=== PATIENT | male | born 1970 ===

== ENCOUNTER 2017-02-18 19:46 | Emergency (ER) | payer SELFPAY ==
[2017-02-18 20:00] VITALS: BP 120/73; PULSE 87; RESP 20; TEMP 98.2; O2SAT 95
== END 2017-02-18 20:03 | disposition left against medical advice (07) ==
LOC: C.ER 19:46
DX: F19.10 Other psychoactive substance abuse, uncomplicated (principal); Z02.9 Encounter for administrative examinations, unspecified
CPT/HCPCS: 82948; LWBS0

== ENCOUNTER 2017-11-28 12:54 | Emergency (ER) | payer OTHER ==
[2017-11-28 13:10] VITALS: BP 128/79; PULSE 89; RESP 20; TEMP 99.4; O2SAT 99
[2017-11-28] MEDS ORDERED: Lidocaine 5% Patch TD STA (13:30)
--- NOTE | 2017-11-28 13:30 | C.PDOC ---
History Of Present Illness 47 year old male presents to the ED for evaluation of persistent to left side of chest and back s/p fall and contusion 5 days ago. Patient states pain is worse with movement and when coughing. Patient reports limited improvement with Ibuprofen. Patient was advised by employment office to come in for evaluation and work note. Patient denies fever, chills, shortness of breath, dyspnea on exertion. Patient denies other associated symptoms or injuries. CO PERSIST PERSIST PAIN L SIDE CHEST/BACK SP FALL AND CONTUSION 5 DAYS AGO. PAIN WORSE W MOVEMENT, COUGH. LIMITED IMPROVE W IBUPROFEN. PT ADVISED BY EMPLOYMENT OFFICE TO COME FOR EVAL, WORK NOTE. NO FEVER, SOB/ROBLERO. DENIES OTHER ASSOC SX INJURY EXAM MILD DIST NONTOXIC HEENT ATRAUM CHEST WALL + L LAT LOWER RIB TEND NO CREPITUS, SWELL GROSS DEFORM. SKIN OCC ABRASIONS L MID BACK NO ERYTHEMA NEURO INTACT NARD SPEAKING FULL SENTENCES REMAINDER NEG - HPI Time Seen by Provider: 11/28/17 13:18 Chief Complaint (Nursing): Back Pain History Per: Patient History/Exam Limitations: no limitations Onset/Duration Of Symptoms: Days (5) Location Of Injury: Left: Chest Additional History Per: Patient Past Medical History Reviewed: Historical Data, Nursing Documentation, Vital Signs Vital Signs: Last Vital Signs Temp 99.4 F 11/28/17 13:08 Pulse 89 11/28/17 13:08 Resp 20 11/28/17 13:08 BP 128/79 11/28/17 13:08 Pulse Ox 99 11/28/17 14:01 - Medical History PMH: No Chronic Diseases Surgical History: No Surg Hx Family History: States: Unknown Family Hx - Social History Hx Alcohol Use: Yes Hx Substance Use: No - Immunization History Hx Tetanus Toxoid Vaccination: No Hx Influenza Vaccination: No Hx Pneumococcal Vaccination: No Review Of Systems Constitutional: Negative for: Fever, Chills Cardiovascular: Positive for: Chest Pain (left-sided) Respiratory: Negative for: Shortness of Breath, SOB with Excertion Physical Exam - Physical Exam Appears: Non-toxic, Other (mild distress) Skin: Normal Color, Warm, Dry, Other (occasional abrasiosn to left mid-back. no erythema ) Head: Atraumatic, Normacephalic Eye(s): bilateral: Normal Inspection Oral Mucosa: Moist Neck: Supple Chest: Symmetrical, No Deformity, Tenderness (to left lateral lower rib ), No Other (crepitus, swelling or gross deformities ) Cardiovascular: Rhythm Regular, No Murmur Respiratory: Normal Breath Sounds, No Rales, No Rhonchi, No Wheezing, Other (no acute respiratory distress. speaking in full sentences ) Extremity: Normal ROM, Capillary Refill (less than 2 seconds ) Neurological/Psych: Oriented x3, Normal Speech, Normal Cognition, Other ED Course And Treatment O2 Sat by Pulse Oximetry: 99 (on RA) Pulse Ox Interpretation: Normal - Radiology CXR: Interpreted by Me CXR Interpretation: Yes: No Acute Disease - Other Rad L RIBS X-Ray: Interpreted by Me ( NEG) Progress Note: Left ribs and Chest XR ordered and reviewed. Flexeril PO, Tylenol PO, and Lidoderm TD given. Disposition Counseled Patient/Family Regarding: Studies Performed, Diagnosis, Need For Followup, Rx Given - Disposition Referrals: [facility] [Outside] [facility] [Outside] Disposition: HOME/ ROUTINE Disposition Time: 13:59 Condition: IMPROVED Prescriptions: Cyclobenzaprine [Flexeril] 10 mg PO TID #15 tab Ibuprofen [Motrin] 600 mg PO Q6 #30 tab Lidocaine 5% [Lidoderm] 1 ea TD PRN PRN #10 patch PRN Reason: Pain, Moderate (4-7) Instructions: Bruised Rib (DC) Forms: [facility] (Malian), Work Excuse - Clinical Impression Clinical Impression: Rib contusion - Scribe Statement The provider has reviewed the documentation as recorded by the Scribe (Evonne Martinez) Provider Attestation: All medical record entries made by the Scribe were at my direction and personally dictated by me. I have reviewed the chart and agree that the record accurately reflects my personal performance of the history, physical exam, medical decision making, and the department course for this patient. I have also personally directed, reviewed, and agree with the discharge instructions and disposition.
[2017-11-28] MEDS ORDERED: Lidocaine 5% Patch TD ONE (13:52)
--- NOTE | 2017-11-28 14:21 | RAD ---
PROCEDURE: Radiographs of the Chest and Left Ribs. HISTORY: TRAUMA COMPARISON: None available. TECHNIQUE: Frontal radiograph of the chest and multiple oblique radiographs of the left ribs were obtained. FINDINGS: LEFT RIBS: No fracture or focal lesion visualized. LUNGS: Clear. PLEURA: No pneumothorax or pleural fluid. CARDIOVASCULAR: Normal sized heart. No pulmonary vascular congestion. OTHER FINDINGS: None. IMPRESSION: Unremarkable radiographs of the chest and left ribs. No left rib fracture.
== END 2017-11-28 14:08 | disposition home or self-care (01) ==
LOC: C.ER 12:54
DX: S20.212A Contusion of left front wall of thorax, initial encounter (principal); W19.XXXA Unspecified fall, initial encounter

== ENCOUNTER 2017-12-11 14:37 | Emergency (ER) | payer SELFPAY ==
[2017-12-11 14:48] VITALS: BP 113/74; PULSE 73; RESP 18; TEMP 99.2; O2SAT 99
--- NOTE | 2017-12-11 14:54 | C.PDOC ---
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 Patient seen on 08/28 for left rib contusion and had xray negative for fracture. Patient denies new injury or any other complaints at this time. Time Seen by Provider: 12/11/17 14:49 Chief Complaint (Nursing): Medical Clearance History Per: Patient History/Exam Limitations: no limitations Onset/Duration Of Symptoms: Days Current Symptoms Are (Timing): Better Past Medical History Reviewed: Historical Data, Nursing Documentation, Vital Signs Vital Signs: Last Vital Signs Temp 99.2 F 12/11/17 14:47 Pulse 73 12/11/17 14:47 Resp 18 12/11/17 14:47 BP 113/74 12/11/17 14:47 Pulse Ox 99 12/11/17 15:45 - Medical History PMH: No Chronic Diseases Surgical History: No Surg Hx Family History: States: No Known Family Hx - Social History Hx Alcohol Use: Yes Hx Substance Use: No - Immunization History Hx Tetanus Toxoid Vaccination: No Hx Influenza Vaccination: No Hx Pneumococcal Vaccination: No Review Of Systems Constitutional: Negative for: Fever, Chills Cardiovascular: Negative for: Chest Pain Respiratory: Negative for: Cough Gastrointestinal: Negative for: Nausea, Vomiting Skin: Negative for: Rash Physical Exam - Physical Exam Appears: Non-toxic, No Acute Distress Skin: Warm, Dry, No Rash Head: Atraumatic, Normacephalic Eye(s): bilateral: Normal Inspection Oral Mucosa: Moist Chest: Symmetrical Cardiovascular: Rhythm Regular Respiratory: Normal Breath Sounds, No Rales, No Rhonchi, No Wheezing Gastrointestinal/Abdominal: Soft, No Tenderness, No Guarding, No Rebound Back: No CVA Tenderness, No Paraspinal Tenderness Neurological/Psych: Oriented x3, Normal Speech, Normal Cognition ED Course And Treatment O2 Sat by Pulse Oximetry: 99 (RA) Pulse Ox Interpretation: Normal Medical Decision Making Medical Decision Making: seen 11/[address] (not work related) and wants note now clearing him for 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 Disposition Doctor Will See Patient In The: Office Counseled Patient/Family Regarding: Studies Performed, Diagnosis - Disposition Referrals: [facility] [Outside] [facility] [Outside] [facility] [Outside] Disposition: HOME/ ROUTINE Disposition Time: 14:54 Condition: GOOD Instructions: Costochondritis (DC) Forms: [facility] (Andorran), Work Excuse - Clinical Impression Clinical Impression: Medical assessment - Scribe Statement The provider has reviewed the documentation as recorded by the Scribguillermo Santiago All medical record entries made by the Zachibguillermo were at my direction and personally dictated by me. I have reviewed the chart and agree that the record accurately reflects my personal performance of the history, physical exam, medical decision making, and the department course for this patient. I have also personally directed, reviewed, and agree with the discharge instructions and disposition.
== END 2017-12-11 15:04 | disposition home or self-care (01) ==
LOC: C.ER 14:37
DX: Z04.8 Encounter for examination and observation for other specified reasons (principal)

== ENCOUNTER 2018-04-15 18:31 | Emergency (ER) | payer SELFPAY ==
--- NOTE | 2018-04-15 19:12 | C.PDOC ---
History Of Present Illness 47 year old male is brought to the ED by EMS for public intoxication. As per EMS patient was found drinking on a bench. Patient admits to drinking alcohol today. Patient denies SI/H, hallucinations, trauma, injury, fall, CP, SOB. Time Seen by Provider: 04/15/18 19:12 Chief Complaint (Nursing): Substance Abuse History Per: Patient, EMS History/Exam Limitations: intoxication Onset/Duration Of Symptoms: Hrs Current Symptoms Are (Timing): Still Present Suicide/Self Injury Attempted (Context): None Modifying Factor(s): Alcohol Associated Symptoms: denies: Depression, Suicidal Thoughts, Suicidal Plan Recent travel outside of the [place]: No Additional History Per: Patient, EMS Past Medical History Reviewed: Historical Data, Nursing Documentation, Vital Signs Vital Signs: Last Vital Signs Temp 98.1 F 04/15/18 18:36 Pulse 86 04/15/18 18:36 Resp 18 04/15/18 18:36 BP 122/79 04/15/18 18:36 Pulse Ox 100 04/15/18 18:36 - Medical History PMH: No Chronic Diseases Surgical History: No Surg Hx Family History: States: No Known Family Hx - Social History Hx Alcohol Use: Yes Hx Substance Use: No - Immunization History Hx Tetanus Toxoid Vaccination: No Hx Influenza Vaccination: No Hx Pneumococcal Vaccination: No Review Of Systems Constitutional: Negative for: Fever, Chills Cardiovascular: Negative for: Chest Pain Respiratory: Negative for: Shortness of Breath Gastrointestinal: Negative for: Nausea, Vomiting Neurological: Negative for: Weakness, Numbness Psych: Negative for: Depression, Suicidal ideation Physical Exam - Physical Exam Appears: Non-toxic, No Acute Distress Skin: Warm, Dry Head: Normacephalic Eye(s): bilateral: Normal Inspection Neck: Supple Chest: Symmetrical Cardiovascular: Rhythm Regular Respiratory: No Rales, No Rhonchi, No Wheezing Gastrointestinal/Abdominal: Soft, No Tenderness, No Guarding, No Rebound Extremity: Bilateral: Atraumatic, Normal Color And Temperature, Normal ROM Neurological/Psych: Oriented x3, Normal Speech Gait: Steady ED Course And Treatment O2 Sat by Pulse Oximetry: 100 (ON RA) Pulse Ox Interpretation: Normal Reevaluation Time: 05:05 Reassessment Condition: Improved Disposition Counseled Patient/Family Regarding: Studies Performed, Diagnosis, Need For Followup - Disposition Referrals: [facility] [Outside] Disposition: HOME/ ROUTINE Disposition Time: 19:12 Condition: FAIR Instructions: Alcohol Abuse and Alcoholism (DC) Forms: [facility] (Bahamian) - Clinical Impression Clinical Impression: Alcohol intoxication - Scribe Statement The provider has reviewed the documentation as recorded by the Scribe London Dong All medical record entries made by the Scribe were at my direction and personally dictated by me. I have reviewed the chart and agree that the record accurately reflects my personal performance of the history, physical exam, medical decision making, and the department course for this patient. I have also personally directed, reviewed, and agree with the discharge instructions and disposition.
[2018-04-16 02:21] VITALS: TEMP 98.3
[2018-04-16 05:06] VITALS: O2SAT 100
[2018-04-16 05:16] VITALS: BP 124/83; PULSE 88; RESP 20
== END 2018-04-16 05:15 | disposition home or self-care (01) ==
LOC: C.ER 18:31
DX: F10.129 Alcohol abuse with intoxication, unspecified (principal)

== ENCOUNTER 2018-07-26 16:49 | Emergency (ER) | payer OTHER ==
[2018-07-26 16:57] VITALS: TEMP 98.5
--- NOTE | 2018-07-26 17:50 | C.PDOC ---
History Of Present Illness 47 y/o male presents to the ER for evaluation of head injury which occurred 4 days ago.Patient states that he was intoxicated and he fell onto the right sdief of his head and face. Patient reports that he had brief LOC. He notes that he has sharp intermittent pain on the right head. He was evalauted at [facility] and he was referred to the ER. Denies having blurriness, neck pain, nausea, and vomiting. - HPI Time Seen by Provider: 07/26/18 17:19 Chief Complaint (Nursing): Trauma History Per: Patient History/Exam Limitations: no limitations Onset/Duration Of Symptoms: Days Severity: Moderate Past Medical History Reviewed: Historical Data, Nursing Documentation, Vital Signs Vital Signs: Last Vital Signs Temp 98.5 F 07/26/18 16:55 Pulse 84 07/26/18 16:55 Resp 20 07/26/18 16:55 BP 155/94 H 07/26/18 16:55 Pulse Ox 100 07/26/18 16:55 - Medical History PMH: No Chronic Diseases Denies: Chronic Kidney Disease Surgical History: No Surg Hx Family History: States: No Known Family Hx - Social History Hx Alcohol Use: Yes Hx Substance Use: No - Immunization History Hx Tetanus Toxoid Vaccination: No Hx Influenza Vaccination: No Hx Pneumococcal Vaccination: No Review Of Systems Constitutional: Negative for: Fever, Chills Eyes: Negative for: Vision Change Gastrointestinal: Negative for: Nausea, Vomiting Neurological: Positive for: Headache. Negative for: Dizziness Physical Exam - Physical Exam Appears: Non-toxic, No Acute Distress Skin: Normal Color, Warm, Dry Head: Normacephalic, Abrasion (healing abrasions to right forehead) Eye(s): bilateral: Normal Inspection, PERRL, EOMI Nose: Normal Oral Mucosa: Moist Neck: Supple Chest: Symmetrical Cardiovascular: Rhythm Regular Respiratory: Normal Breath Sounds, No Rales, No Rhonchi, No Wheezing Gastrointestinal/Abdominal: Normal Exam, Soft, No Tenderness, No Guarding, No Rebound Back: No Vertebral Tenderness Extremity: Normal ROM Neurological/Psych: Oriented x3, Normal Speech, Normal Cranial Nerves, Normal Motor, Normal Sensation ED Course And Treatment O2 Sat by Pulse Oximetry: 100 (RA) Pulse Ox Interpretation: Normal Medical Decision Making Medical Decision Making: CT-Head has been ordered given patient's history of ETOH abuse. [address] neg for ich. d/c home Disposition Counseled Patient/Family Regarding: Studies Performed, Diagnosis, Need For Followup - Disposition Referrals: [facility] [Outside] Disposition: HOME/ ROUTINE Disposition Time: 18:13 Condition: GOOD Additional Instructions: Follow up in medical clinic in a few days, make appointment. Take Tylenol of needed for pain. Apply cold compresses to face to help reduce swelling (over a towel)several times a day. 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 - Scribe Statement The provider has reviewed the documentation as recorded by the Scribe Berlin Lee Provider Attestation All medical record entries made by the Scribe were at my direction and personally dictated by me. I have reviewed the chart and agree that the record accurately reflects my personal performance of the history, physical exam, medical decision making, and the department course for this patient. I have also personally directed, reviewed, and agree with the discharge instructions and disposition.
--- NOTE | 2018-07-26 18:10 | CT ---
Date of service: 07/26/2018 PROCEDURE: CT HEAD WITHOUT CONTRAST. HISTORY: fall with loc on sun, headache right side COMPARISON: None available. TECHNIQUE: Axial computed tomography images were obtained through the head/brain without intravenous contrast. Radiation dose: Total exam DLP = 1036.44 mGy-cm. This CT exam was performed using one or more of the following dose reduction techniques: Automated exposure control, adjustment of the mA and/or kV according to patient size, and/or use of iterative reconstruction technique. FINDINGS: HEMORRHAGE: No intracranial hemorrhage. BRAIN: No mass effect or edema. Conrad-white matter differentiation appears intact. Please note that MRI with diffusion imaging is more sensitive in the detection of acute ischemic event. VENTRICLES: No hydrocephalus. CALVARIUM: Unremarkable. PARANASAL SINUSES: Unremarkable as visualized. No significant inflammatory changes. MASTOID AIR CELLS: Unremarkable as visualized. No inflammatory changes. OTHER FINDINGS: Partial opacification of the external auditory canals, likely cerumen. Right frontal/facial soft tissue swelling. IMPRESSION: Right frontal/facial soft tissue swelling. No acute intracranial pathology identified.
[2018-07-26 18:22] VITALS: BP 143/90; PULSE 82; RESP 18; O2SAT 96
== END 2018-07-26 18:22 | disposition home or self-care (01) ==
LOC: C.ER 16:49
DX: S09.90XD Unspecified injury of head, subsequent encounter (principal); W18.30XD Fall on same level, unspecified, subsequent encounter

== ENCOUNTER 2018-07-29 17:31 | Emergency (ER) | payer SELFPAY ==
--- NOTE | 2018-07-29 18:15 | C.PDOC ---
History Of Present Illness HPI limited due to alcohol intoxication. 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 Unknown height. Patient denies vomiting. CO HEAD INJURY <Didi Wilson - Last Filed: 07/29/18 18:42> History Per: Patient History/Exam Limitations: no limitations Onset/Duration Of Symptoms: Hrs Patient States: Fell Striking Head Loss Of Consciousness: Unsure Recent travel outside of the [place]: No <SteveDidi - Last Filed: 07/29/18 18:42> <Mustapha Gleason - Last Filed: 07/29/18 22:36> Time Seen by Provider: 07/29/18 18:14 Chief Complaint (Nursing): Trauma Past Medical History Reviewed: Historical Data, Nursing Documentation, Vital Signs Vital Signs: Last Vital Signs Temp 98.3 F 07/29/18 17:39 Pulse 94 H 07/29/18 17:39 Resp 16 07/29/18 17:39 BP 153/86 H 07/29/18 17:39 Pulse Ox 98 07/29/18 17:39 - Medical History PMH: No Chronic Diseases Denies: Chronic Kidney Disease Surgical History: No Surg Hx Family History: States: Unknown Family Hx - Social History Hx Alcohol Use: Yes Hx Substance Use: No - Immunization History Hx Tetanus Toxoid Vaccination: No Hx Influenza Vaccination: No Hx Pneumococcal Vaccination: No <Didi Wilson - Last Filed: 07/29/18 18:42> Vital Signs: Last Vital Signs Temp 98.3 F 07/29/18 17:39 Pulse 94 H 07/29/18 17:39 Resp 16 07/29/18 17:39 BP 153/86 H 07/29/18 17:39 Pulse Ox 98 07/29/18 18:44 <Mustapha Gleason - Last Filed: 07/29/18 22:36> Review Of Systems Review Of Systems: ROS cannot be obtained secondary to pt's inabilty to answer questions. (Due to alcohol intoxication) <SteveDidi - Last Filed: 07/29/18 18:42> Physical Exam - Physical Exam Appears: Non-toxic, No Acute Distress Skin: No Rash, Other (Scalp abrasion. No active bleeding. ) Head: Other (Scalp hematoma to right parietal occipital. Right forehead hematoma with swelling. ) Eye(s): bilateral: Normal Inspection, PERRL, EOMI Oral Mucosa: Moist Neck: Normal ROM, Supple Chest: Symmetrical, No Tenderness Cardiovascular: Rhythm Regular, No Murmur Respiratory: Normal Breath Sounds, No Rales, No Rhonchi, No Wheezing, Other (NARD) Gastrointestinal/Abdominal: Soft, No Tenderness, No Distention Extremity: Normal ROM, No Deformity Extremity: Bilateral: Atraumatic, Normal Color And Temperature, Normal ROM Pulses: Left Radial: Normal, Right Radial: Normal Neurological/Psych: Oriented x3 (Awake and alert ), Normal Speech, Normal Motor, Normal Sensation, Normal Reflexes, Other (Interactive. Calm. Cooperative. Alchol intoxicated. ) Gait: Unsteady <Didi Wilson - Last Filed: 07/29/18 18:42> ED Course And Treatment O2 Sat by Pulse Oximetry: 98 (RA) Pulse Ox Interpretation: Normal <Didi Wilson - Last Filed: 07/29/18 18:42> - Laboratory Results Result Diagrams: 07/29/18 21:07/29/18: Lab Results: Total Bilirubin 0.3 mg/dL (0.2-1.3) 07/29/18: AST 33 U/L (17-59) 07/29/18: ALT 15 U/L (21-72) L 07/29/18: Alkaline Phosphatase 67 U/L (38-126) 07/29/18: Total Protein 7.3 g/dL (6.3-8.3) 07/29/18: Albumin 4.2 g/dL (3.5-5.0) 07/29/18: Globulin 3.1 gm/dL (2.2-3.9) 07/29/18: Albumin/Globulin Ratio 1.4 (1.0-2.1) 07/29/18: Urine Color Straw (YELLOW) 07/29/18: Urine Clarity Clear (Clear) 07/29/18: Urine pH 5.0 (5.0-8.0) 07/29/18: Ur Specific [place] 1.008 (1.003-1.030) 07/29/18: Urine Protein Negative mg/dL (NEGATIVE) 07/29/18: Urine Glucose (UA) Normal mg/dL (Normal) 02/10/19 21:29 Urine Ketones Negative mg/dL (NEGATIVE) 07/29/18 21: Urine Blood 1+ (NEGATIVE) H 07/29/18 21: Urine Nitrate Negative (NEGATIVE) 07/29/18 21: Urine Bilirubin Negative (NEGATIVE) 07/29/18 21: Urine Urobilinogen Normal mg/dL (0.2-1.0) 07/29/18 21:29 Ur Leukocyte Esterase Neg Deandre/uL (Negative) 07/29/18 21: Urine WBC (Auto) < 1 /hpf (0-5) 07/29/18 21: Urine RBC (Auto) < 1 /hpf (0-3) 07/29/18 21: Ur Squamous Epith Cells < 1 /hpf (0-5) 07/29/18 21: Urine Bacteria Rare (<OCC) 07/29/18 21:29 <Mustapha Gleason - Last Filed: 07/29/18 22:36> Progress - Data Reviewed Data Reviewed: Diagnostic imaging <Didi Wilson - Last Filed: 07/29/18 18:42> Disposition - Disposition Disposition Time: 19:00 <Didi Wilson - Last Filed: 07/29/18 18:42> Counseled Patient/Family Regarding: Diagnosis - Disposition Disposition Time: 22:36 - POA Present On Arrival: None <Mustapha Gleason - Last Filed: 07/29/18 22:36> - Disposition Referrals: [facility] [Outside] Disposition: HOME/ ROUTINE Condition: STABLE Instructions: Closed Head Injury (DC), Alcohol Abuse and Alcoholism (DC) Forms: [employer] [facility] (Cayman Islander) - Clinical Impression Clinical Impression: Alcohol intoxication, Closed head injury, Facial contusion, Scalp abrasion - Scribe Statement The provider has reviewed the documentation as recorded by the Scribguillermo Chavez All medical record entries made by the Scribe were at my direction and personally dictated by me. I have reviewed the chart and agree that the record accurately reflects my personal performance of the history, physical exam, medical decision making, and the department course for this patient. I have also personally directed, reviewed, and agree with the discharge instructions and di sposition. <Didi Wilson - Last Filed: 07/29/18 18:42> Physician Patient Turnover Patient Signed Over To: Gleason,Mustapha R Handoff Comments: ECHO BLACKBURN <Didi Wilson - Last Filed: 07/29/18 18:42>
[2018-07-29] MEDS ORDERED: Tetanus/Diphtheria Toxoids 0.5 ml Syringe IM ONE ×2 (18:44→19:22)
[2018-07-29] MEDS ORDERED: Bacitracin 500 Units/gm Oint Foilpak UD ONE (21:22)
[2018-07-29 21:35] LABS: BASO % 0.2 % (0.0-2.0); EOS # 0.1 K/uL (0.0-0.7); EOS % 1.1 % (0.0-4.0); HEMOGLOBIN 14.9 g/dL (12.0-18.0); LYMPH # 2.3 K/uL (1.0-4.3); LYMPH % 29.2 % (20.0-40.0); MEAN CELL VOLUME 95.9 fL (80.0-94.0); MEAN CORPUSCULAR HEMOGLOBIN 33.5 pg (27.0-31.0); MEAN CORPUSCULAR HGB CONC 34.9 g/dL (33.0-37.0); MEAN PLATELET VOLUME 7.2 fL (7.2-11.7); MONO # 0.4 K/uL (0.0-0.8); MONO % 4.8 % (0.0-10.0); NEUT % 64.7 % (50.0-75.0); NRBC % 0.1 % (0.0-2.0); RBC 4.46 Mil/uL (4.40-5.90); RED CELL DISTRIBUTION WIDTH 14.1 % (11.5-14.5); WHITE BLOOD COUNT 7.8 K/uL (4.8-10.8)
[2018-07-29 21:41] LABS: SQUAMOUS EPITHIAL < 1 /hpf (0-5); URINE BACTERIA RARE (<OCC); URINE BILIRUBIN NEGATIVE (NEGATIVE); URINE BLOOD 1+ (NEGATIVE); URINE CLARITY Clear (Clear); URINE COLOR Straw (YELLOW); URINE GLUCOSE (UA) NORMAL (Normal); URINE LEUKOCYTE ESTERASE NEG Leu/uL (Negative); URINE PROTEIN NEGATIVE (NEGATIVE); URINE UROBILINOGEN NORMAL mg/dL (0.2-1.0)
[2018-07-29 21:50] LABS: ALB/GLOB RATIO 1.4 (1.0-2.1); ALBUMIN 4.2 g/dL (3.5-5.0); ALT/SGPT 15 U/L (21-72); AST/SGOT 33 U/L (17-59); BLOOD UREA NITROGEN 6 mg/dL (9-20); CALCIUM 8.7 mg/dl (8.6-10.4); GFR NON-AFRICAN AMERICAN > 60
[2018-07-29 22:24] VITALS: BP 144/84; PULSE 84; RESP 14; TEMP 98; O2SAT 97
[2018-07-29 22:28] LABS: BARBITURATES, UR NEGATIVE (NEGATIVE); BENZODIAZEPINES, UR NEGATIVE (NEGATIVE); OPIATES, UR NEGATIVE (NEGATIVE); PHENCYCLIDINE, UR NEGATIVE (NEGATIVE)
--- NOTE | 2018-07-30 08:41 | CT ---
Date of service: 07/29/2018 PROCEDURE: CT HEAD WITHOUT CONTRAST. HISTORY: TRAUMA COMPARISON: 07/26/2018 TECHNIQUE: Axial computed tomography images were obtained through the head/brain without intravenous contrast. Radiation dose: Total exam DLP = 1070.85 mGy-cm. This CT exam was performed using one or more of the following dose reduction techniques: Automated exposure control, adjustment of the mA and/or kV according to patient size, and/or use of iterative reconstruction technique. FINDINGS: HEMORRHAGE: No intracranial hemorrhage. BRAIN: No mass effect or edema. No atrophy or chronic microvascular ischemic changes. VENTRICLES: Unremarkable. No hydrocephalus. CALVARIUM: No fracture. High right posterior parietal scalp hematoma, small. PARANASAL SINUSES: Unremarkable as visualized. No significant inflammatory changes. MASTOID AIR CELLS: Unremarkable as visualized. No inflammatory changes. OTHER FINDINGS: None. IMPRESSION: No acute intracranial hemorrhage. Small right high posterior parietal scalp hematoma. Otherwise unremarkable examination. The preliminary findings for this examination were reported by [facility] at 8:56 p.m. on 07/29/2018. There is concurrence of this report with the preliminary findings.
--- NOTE | 2018-07-30 09:00 | CT ---
CT cervical spine HISTORY: Trauma. Neck pain. COMPARISON: None available. TECHNIQUE: Multi-echo multiplanar sequences were performed through the cervical spine without the use of intravenous contrast. Subsequently, sagittal and coronal reformatted images were obtained. This CT exam was performed using one or more of the following dose reduction techniques: Automated exposure control, adjustment of the mA and/or kV according to patient size, and/or use of iterative reconstruction technique. Findings: Reversal of the normal cervical lordosis. Multilevel disc space narrowing at the C3-4, C4-5, and C5-6 levels. Multilevel endplate sclerosis at the C3-4, C4-5, and C5-6 levels. Prominent posterior disc osteophyte complexes at the C3-4, C4-5, and C5-6 levels. Narrowing at the atlantodental interval with sclerosis and hypertrophy. Subchondral cyst formation noted at the tip of dens. No evidence of acute displaced fracture. No gross prevertebral soft tissue swelling. Patchy lucency in the left transverse process of the T1 vertebral body, nonspecific. Motion artifact at the level of the aorta, limits evaluation. Emphysematous changes in the visualized lung glover. Impression: Degenerative changes. If pain persists, consider correlation with MRI. A preliminary report was generated at 9:21 p.m. on 07/29/[address] Khoa Chowdhury from [employer].
== END 2018-07-29 22:45 | disposition home or self-care (01) ==
LOC: C.ER 17:31
DX: F10.129 Alcohol abuse with intoxication, unspecified (principal); S00.01XA Abrasion of scalp, initial encounter; S00.83XA Contusion of other part of head, initial encounter; W01.0XXA Fall on same level from slipping, tripping and stumbling without subsequent striking against object, initial encounter; Z23 Encounter for immunization
CPT/HCPCS: 70450; 72125; 80053; 81001; 83735; 84100; 85025; 90471; 90714; 99285; G0480

== ENCOUNTER 2018-08-04 16:08 | Emergency (ER) | payer SELFPAY ==
[2018-08-04 16:14] VITALS: BP 128/88; PULSE 88; RESP 18; TEMP 98.8; O2SAT 100
--- NOTE | 2018-08-04 17:12 | C.PDOC ---
History Of Present Illness 47 y/o male pt brought into ER by EMS for public intoxication outside of his apartment. Pt has multiple vague complaints, saying that he needs a physical exam and blood work because he fell a week ago and he end up with a cut on his head. Pt admits to drinking whiskey shots and denies any other drug use and does not have any other complaints. Time Seen by Provider: 08/04/18 16:19 Chief Complaint (Nursing): Substance Abuse History Per: Patient, EMS History/Exam Limitations: no limitations Onset/Duration Of Symptoms: Hrs Current Symptoms Are (Timing): Still Present Modifying Factor(s): Alcohol Past Medical History Reviewed: Historical Data, Nursing Documentation, Vital Signs Vital Signs: Last Vital Signs Temp 98.8 F 08/04/18 16:11 Pulse 88 08/04/18 16:11 Resp 18 08/04/18 16:11 BP 128/88 08/04/18 16:11 Pulse Ox 100 08/04/18 16:11 Family History: States: Unknown Family Hx - Social History Hx Alcohol Use: Yes Hx Substance Use: No - Immunization History Hx Tetanus Toxoid Vaccination: No Hx Influenza Vaccination: No Hx Pneumococcal Vaccination: No Review Of Systems Constitutional: Positive for: Other (public intoxication ) Cardiovascular: Negative for: Chest Pain Respiratory: Negative for: Cough Gastrointestinal: Negative for: Nausea, Vomiting, Abdominal Pain Genitourinary: Negative for: Dysuria, Frequency, Hematuria Musculoskeletal: Negative for: Neck Pain Skin: Positive for: Other (cut on forehead ) Neurological: Negative for: Weakness, Numbness Psych: Negative for: Anxiety Physical Exam - Physical Exam Appears: Non-toxic, No Acute Distress, Other (intoxicated ) Skin: Warm, Dry Head: Normacephalic, Laceration (well-healed with no signs of infection ) Eye(s): bilateral: PERRL, EOMI Oral Mucosa: Other (alcohol on breath ) Cardiovascular: Rhythm Regular Respiratory: Normal Breath Sounds Gastrointestinal/Abdominal: Soft, No Tenderness Extremity: Normal ROM (x4) Neurological/Psych: Oriented x3, Other (slurred speech ) ED Course And Treatment O2 Sat by Pulse Oximetry: 100 (RA) Pulse Ox Interpretation: Normal Medical Decision Making Medical Decision Making: Patient awake, alert, able to ambulate without assistance. No acute findings on exam except for mild intoxication. Patient asking for a physical and bloodwork, but does not have any specific complaints. Advised outpatient followup for routine care. Patient stable for discharge home. Disposition - Disposition Disposition: HOME/ ROUTINE Disposition Time: 17:36 Condition: STABLE Additional Instructions: ROCKY HUFFMAN, thank you for letting us take care of you today. Your provider was Rosalba Simon MD and you were treated for SUBSTANCE ABUSE. The emergency medical care you received today was directed at your acute symptoms. If you were prescribed any medication, please fill it and take as directed. It may take several days for your symptoms to resolve. Return to the Emergency Department if your symptoms worsen, do not improve, or if you have any other problems. Please contact your doctor or call one of the physicians/clinics you have been referred to that are listed on the Patient Visit Information form that is included in your discharge packet. Bring any paperwork you were given at discharge with you along with any medications you are taking to your follow up visit. Our treatment cannot replace ongoing medical care by a primary care provider outside of the emergency department. Thank you for allowing the [facility] team to be part of your care today. If you had an X-Ray or CT scan: A Radiologist will review the ED reading if any change in treatment is needed we will contact you. If you had a blood, urine, or wound culture: It will take several days for the results, if any change in treatment is needed we will contact you. If you had an STI test: It will take 48 hours for the results. Please call after 1 week if you have not heard back. Instructions: Alcohol Abuse and Alcoholism (DC) Forms: [employer] (Greenlandic) - Clinical Impression Clinical Impression: Alcohol abuse with intoxication - Scribe Statement The provider has reviewed the documentation as recorded by the Scribe Javier Do Provider Attestation: All medical record entries made by the Scribe were at my direction and personally dictated by me. I have reviewed the chart and agree that the record accurately reflects my personal performance of the history, physical exam, medical decision making, and the department course for this patient. I have also personally directed, reviewed, and agree with the discharge instructions and disposition.
== END 2018-08-04 17:39 | disposition home or self-care (01) ==
LOC: C.ER 16:08
DX: F10.129 Alcohol abuse with intoxication, unspecified (principal)

== ENCOUNTER 2018-09-20 23:21 | Emergency (ER) | payer MEDICAID, OTHER ==
--- NOTE | 2018-09-20 23:42 | C.PDOC ---
History Of Present Illness 48 year old male brought in for public intoxication and left lateral rib pain. Patient has had many prior evaluations for ETOH abuse and left rib discomfort. Time Seen by Provider: 09/20/18 23:35 Chief Complaint (Nursing): Substance Abuse History Per: Patient, EMS History/Exam Limitations: no limitations Onset/Duration Of Symptoms: Hrs Current Symptoms Are (Timing): Still Present Modifying Factor(s): Alcohol Involuntary Hold By: None Recent travel outside of the [place]: No Past Medical History Reviewed: Historical Data, Nursing Documentation, Vital Signs - Medical History PMH: Denies: Chronic Kidney Disease Family History: States: Unknown Family Hx - Social History Hx Alcohol Use: Yes Hx Substance Use: No - Immunization History Hx Tetanus Toxoid Vaccination: No Hx Influenza Vaccination: No Hx Pneumococcal Vaccination: No Review Of Systems Constitutional: Negative for: Fever, Chills Cardiovascular: Negative for: Chest Pain, Palpitations Respiratory: Negative for: Cough, Shortness of Breath Gastrointestinal: Negative for: Nausea, Vomiting Musculoskeletal: Positive for: Other (Left rib discomfort) Neurological: Negative for: Weakness, Numbness Physical Exam - Physical Exam Appears: Non-toxic, Other (ETOH on breath) Skin: Normal Color, Warm, No Rash Head: Atraumatic, Normacephalic Eye(s): bilateral: Normal Inspection Oral Mucosa: Moist Neck: Normal, Supple Chest: Symmetrical, Tenderness (Tenderness to left lateral ribs area of T3. No wounds or rash.) Cardiovascular: Rhythm Regular Respiratory: Normal Breath Sounds, No Rales, No Rhonchi, No Wheezing Gastrointestinal/Abdominal: Soft, No Tenderness Neurological/Psych: Oriented x3, Normal Speech ED Course And Treatment ECG: Interpreted By Me, Viewed By Me ECG Rhythm: Sinus Rhythm, R BBB ECG Interpretation: Normal Rate From EC Medical Decision Making Medical Decision Making: L anterior chest wall discomfort, no rash, no new trauma + prior evals for same, WITH etoh abuse ekg normal stable for d/c. defer NSAIDS for worstening alcoholic gastritis ice pack given Disposition Doctor Will See Patient In The: Office Counseled Patient/Family Regarding: Studies Performed, Diagnosis - Disposition Referrals: Alcoholics Anonymous [Outside] [facility] [Outside] [facility] [Outside] [facility] [Outside] Disposition: HOME/ ROUTINE Disposition Time: 23:41 Condition: GOOD Additional Instructions: ice packs to the left chest wall as needed, 1/2 hour per hour, nothing hot avoid alcohol abuse seek Detox, AA Instructions: Alcohol Abuse and Alcoholism (DC), Costochondritis (DC) Forms: [employer] (German) - Clinical Impression Clinical Impression: Alcohol abuse, Costochondritis - Scribe Statement The provider has reviewed the documentation as recorded by the Scribe Pancho Ramírez All medical record entries made by the Scribe were at my direction and personally dictated by me. I have reviewed the chart and agree that the record accurately reflects my personal performance of the history, physical exam, medical decision making, and the department course for this patient. I have also personally directed, reviewed, and agree with the discharge instructions and disposition.
[2018-09-21 00:07] VITALS: BP 130/80; PULSE 70; RESP 14; TEMP 97.5; O2SAT 97
--- NOTE | 2018-09-24 13:00 | CARD ---
APPROVED REPORT Date of service: 09/20/2018 EKG Measurement Heart [id number] <Conclusion> Normal sinus rhythm Incomplete right bundle branch block Borderline ECG
== END 2018-09-21 00:10 | disposition home or self-care (01) ==
LOC: C.ER 23:21
DX: F10.10 Alcohol abuse, uncomplicated (principal); Y90.9 Presence of alcohol in blood, level not specified; M94.0 Chondrocostal junction syndrome [Tietze]

== ENCOUNTER 2018-10-27 14:06 | Emergency (ER) | payer SELFPAY ==
[2018-10-27 14:19] VITALS: RESP 18; TEMP 98.4
--- NOTE | 2018-10-27 14:30 | C.PDOC ---
History Of Present Illness 48 y/o male, chronic alcoholic, is brought in by ambulance after being picked up at a park where he was drinking alcohol. Patient complains of left-sided chest wall discomfort. States he drinks four 24oz beers a day. Denies fall or trauma. Time Seen by Provider: 10/27/18 14:21 Chief Complaint (Nursing): Substance Abuse History Per: Patient, EMS History/Exam Limitations: no limitations Onset/Duration Of Symptoms: Hrs Current Symptoms Are (Timing): Still Present Past Medical History Reviewed: Historical Data, Nursing Documentation, Vital Signs Vital Signs: Last Vital Signs Temp 98.4 F 10/27/18 14:09 Pulse 96 H 10/27/18 14:09 Resp 18 10/27/18 14:09 BP 128/80 10/27/18 14:09 Pulse Ox 97 10/27/18 14:09 Primary Care Provider: FAMILY PROVIDER,NO - Medical History PMH: Denies: Chronic Kidney Disease Family History: States: No Known Family Hx - Social History Hx Alcohol Use: Yes Hx Substance Use: No - Immunization History Hx Tetanus Toxoid Vaccination: No Hx Influenza Vaccination: No Hx Pneumococcal Vaccination: No Review Of Systems Except As Marked, All Systems Reviewed And Found Negative. Constitutional: Negative for: Fever, Chills, Sweats Cardiovascular: Positive for: Chest Pain (left-sided chest wall discomfort). Negative for: Palpitations Respiratory: Negative for: Shortness of Breath Gastrointestinal: Negative for: Nausea, Vomiting, Abdominal Pain Musculoskeletal: Negative for: Neck Pain Physical Exam - Physical Exam Appears: Non-toxic, No Acute Distress Skin: Warm, Dry Head: Normacephalic Eye(s): bilateral: Normal Inspection Oral Mucosa: Moist, Other (alcohol on breath) Neck: Supple Chest: Tenderness (digitally reproducible left lateral chest wall tenderness in T4 area, no rash or deformity) Cardiovascular: Rhythm Regular, No Murmur Respiratory: Normal Breath Sounds, No Rales, No Rhonchi, No Wheezing Extremity: Bilateral: Atraumatic, Normal ROM Neurological/Psych: Oriented x3, Normal Speech ED Course And Treatment O2 Sat by Pulse Oximetry: 97 (RA) Pulse Ox Interpretation: Normal Medical Decision Making Medical Decision Making: Plan: --EKG --Glucose POC --Tylenol L chest wall discomfort no rash normal EKG persistent alcohol abuse since 2014- not interested in Detox today Disposition Doctor Will See Patient In The: Office Counseled Patient/Family Regarding: Studies Performed, Diagnosis - Disposition Referrals: Alcoholics Anonymous [Outside] [employer] [facility] [Outside] [facility] [Outside] [facility] [Outside] [facility] [Outside] Disposition: HOME/ ROUTINE Disposition Time: 14:29 (') Condition: GOOD Additional Instructions: seek counseling for your alcohol abuse EKG normal L chest pain is musculoskeletal- Costochondritis Tylenol as needed No heavy lifting for 1 week Instructions: Alcohol Use - When Is Drinking a Problem?, Costochondritis Forms: [employer] (Sri Lankan) - Clinical Impression Clinical Impression: Alcohol abuse, Chest wall discomfort - Scribe Statement The provider has reviewed the documentation as recorded by the Rebeka Camacho Provider Attestation: All medical record entries made by the Zachibguillermo were at my direction and personally dictated by me. I have reviewed the chart and agree that the record accurately reflects my personal performance of the history, physical exam, medical decision making, and the department course for this patient. I have also personally directed, reviewed, and agree with the discharge instructions and disposition.
[2018-10-27 15:05] VITALS: BP 130/74; PULSE 86
[2018-10-27 15:59] VITALS: O2SAT 97
--- NOTE | 2018-10-29 13:30 | CARD ---
APPROVED REPORT Date of service: 10/27/2018 EKG Measurement Heart [id number] <Conclusion> Normal sinus rhythm Possible Left atrial enlargement Incomplete right bundle branch block Borderline ECG
== END 2018-10-27 15:06 | disposition home or self-care (01) ==
LOC: C.ER 14:06
DX: F10.10 Alcohol abuse, uncomplicated (principal); R07.89 Other chest pain